=== PATIENT | female | born 1960 | race African-American/Black ===

== ENCOUNTER 2020-01-06 10:50 | Emergency (ER) | payer MEDICARE, OTHER ==
[~2020-01-06] VITALS: Ht 167.6 cm; Wt 77.1 kg
[2020-01-06 11:00] VITALS: BP 140/79
== END 2020-01-06 12:32 | disposition left against medical advice (07) ==
LOC: ER 10:50
DX: R35.0 Frequency of micturition (principal); Z53.21 Procedure and treatment not carried out due to patient leaving prior to being seen by health care provider